=== PATIENT | male | born 1985 | race Two or more races ===

== ENCOUNTER 2024-12-03 11:24 | Emergency (ER) | payer OTHER ==
[~2024-12-03] VITALS: Ht 182.9 cm; Wt 120.2 kg
== END 2024-12-03 15:09 | disposition home or self-care (01) ==
LOC: EDBD 11:26 → ER 11:26 → EDBD 12:06 → ER 12:06
DX: R53.81 Other malaise (principal); J11.1 Influenza due to unidentified influenza virus with other respiratory manifestations; Z20.822 Contact with and (suspected) exposure to COVID-19